=== PATIENT | male | born 1995 | race Caucasian/White ===

== ENCOUNTER 2018-03-08 14:57 | Emergency (ER) | payer BC ==
[2018-03-08] MEDS ORDERED: KETOROLAC 60 MG/2 ML VIAL IM STA (15:46)
[2018-03-08] MEDS ORDERED: METHOCARBAMOL 750 MG TAB PO STA (15:46)
[2018-03-08] MEDS ORDERED: LIDOCAINE 5% PATCH TOPICAL STA (15:48)
[2018-03-08] MEDS ORDERED: HYDROcodone/APAP 7.5-325MG 1 EACH TAB PO ONE (15:49)
--- NOTE | 2018-03-08 15:52 | ED ---
Back Pain HPI - General Chief Complaint: Back Pain/Injury Stated Complaint: Back pain Time Seen by Provider: 03/08/18 15:32 Source: patient Limitations: no limitations - History of Present Illness Initial Comments: Patient is a 22-year-old male presenting for back pain. He states that 2 years ago, he fell onto a steel beam injuring his back but did not require any surgery for that. He states that he did been having lingering pain in the right leg which is pretty much resolved. However, he was horseplaying last night and the friend up when he started having exquisite low right back pain with some shooting pain down his right leg. He denies any saddle anesthesia, bowel incontinence, urinary retention and states that he tried Motrin and Tylenol which did not help. - Related Data Previous Rx's Medication Instructions Recorded Ibuprofen [Motrin] 600 mg PO Q6HR PRN #20 tab 03/08/18 Lidocaine 5% Patch [Lidoderm] 1 patch TOPICAL DAILY #5 patch 03/08/18 Methocarbamol [Robaxin] 500 mg PO TID #20 tab 03/08/18 predniSONE 50 mg PO DAILY #5 tablet 03/08/18 Allergies Allergy/AdvReac Type Severity Reaction Status Date / Time No Known Allergies Allergy Verified 03/08/18 15:02 Review of Systems ROS Statement: Those systems with pertinent positive or pertinent negative responses have been documented in the HPI. Constitutional: Negative for chills, fatigue and fever. HENT: Negative for congestion. Respiratory: Negative for chest tightness, shortness of breath and wheezing. Negative for cough Cardiovascular: Negative for chest pain and palpitations. Gastrointestinal: Negative for abdominal pain. Negative for abdominal distention , diarrhea, nausea and vomiting. Genitourinary: Negative for dysuria. Musculoskeletal: Positive for back pain, negative for neck pain and neck stiffness. Skin: Negative for color change. Neurological: Negative for dizziness, speech difficulty, weakness and light- headedness. Psychiatric/Behavioral: Negative for agitation and confusion. Negative for anxiety ROS Other: All systems not noted in ROS Statement are negative. Past Medical History Additional Past Medical History / Comment(s): chronic back pain History of Any Multi-Drug Resistant Organisms: None Reported Past Surgical History: Appendectomy, Orthopedic Surgery Past Psychological History: No Psychological Hx Reported Smoking Status: Never smoker Past Alcohol Use History: Occasional Past Drug Use History: None Reported General Exam - General Exam Comments Initial Comments: Constitutional: Pt is oriented to person, place, and time. Pt appears well- developed and well-nourished. No distress. HENT: Head: Normocephalic and atraumatic. Eyes: EOM are normal. Neck: Normal range of motion. Neck supple. Cardiovascular: Normal rate, regular rhythm, S1 normal, S2 normal and normal heart sounds. Exam reveals no gallop and no friction rub. No murmur heard. Pulmonary/Chest: Effort normal and breath sounds normal. No tachypnea and no bradypnea. No respiratory distress. No wheezes or rales noted. Abdominal: Soft. Bowel sounds are normal. Pt exhibits no shifting dullness, no distension, no pulsatile liver, no fluid wave, no abdominal bruit and no ascites. There is no tenderness. There is no rigidity, no rebound, no guarding, no tenderness at McBurney's point and negative Mane's sign. Musculoskeletal: Positive right leg lift test, negative left leg raise test. 2 + patellar tendon reflexes bilaterally. Muscle strength 5 over 5 of the lower extremities. Neurological: Pt is alert and oriented to person, place, and time. No cranial nerve deficit. Skin: Skin is warm and dry. No rash noted. Pt is not diaphoretic. No erythema. No pallor. Psychiatric: Pt has a normal mood and affect. Pt behavior is normal. Thought content normal. Limitations: no limitations Course Vital Signs 03/08/18 03/08/18 15:00 17:07 Temperature 97.8 F 98 F Pulse Rate 84 70 Respiratory 20 18 Rate Blood Pressure 136/91 140/92 O2 Sat by Pulse 99 98 Oximetry Medical Decision Making - Medical Decision Making Because of the patient's past medical history of back injury, there is no evidence of acute fracture or malalignment. Patient was given multiple analgesics and stated that pain was manageable. Because of no red flag symptoms consistent with cauda equina, it was felt the patient could be safely discharged home. He is also given multiple prescriptions for analgesics and advised to follow-up with the PCP. Patient was agreeable plan. Disposition Clinical Impression: Back pain Disposition: HOME SELF-CARE Condition: Good Instructions: Acute Low Back Pain (ED) Prescriptions: Ibuprofen [Motrin] 600 mg PO Q6HR PRN #20 tab PRN Reason: Pain Lidocaine 5% Patch [Lidoderm] 1 patch TOPICAL DAILY #5 patch Methocarbamol [Robaxin] 500 mg PO TID #20 tab predniSONE 50 mg PO DAILY #5 tablet Is patient prescribed a controlled substance at d/c from ED?: No Referrals: None,Stated [Primary Care Provider] - 1-2 days Time of Disposition: 16:49
--- NOTE | 2018-03-08 16:10 | XR ---
EXAMINATION TYPE: XR lumbar spine 2 or 3V DATE OF EXAM: 03/08/2018 CLINICAL HISTORY: Back pain TECHNIQUE: Frontal and lateral images of the lumbar spine are obtained. COMPARISON: None FINDINGS: There is a very mild levoscoliosis of the lumbar spine may could be positional in nature. Bowel gas overlies the lower transverse processes. Otherwise the transverse processes are intact. Cassandra gical clips are seen over the right iliac bone there is minimal facet arthropathy at and L5-S1. There are 5 lumbar type vertebral bodies identified. The lumbar spine shows satisfactory alignment withou t evidence of acute fracture or dislocation. Vertebral body heights and disk space heights are within normal limits. The overlying soft tissue appears unremarkable. IMPRESSION: No acute fracture or malalignment is seen in the lumbar spine.
[2018-03-08 17:07] VITALS: BP 140/92; PULSE 70; RESP 18; TEMP 98
== END 2018-03-08 17:07 | disposition home or self-care (01) ==
LOC: EC 14:57
DX: M54.5 Low back pain (principal); M79.604 Pain in right leg; Y93.83 Activity, rough housing and horseplay
CPT/HCPCS: 72100; 99283; 96372; J1885

== ENCOUNTER 2023-08-31 08:24 | Emergency (ER) | payer BC, OTHER ==
--- NOTE | 2023-08-31 08:39 | ED ---
General Adult HPI - General Stated complaint: Syncope Time Seen by Provider: 08/31/23 08:25 Source: patient, RN notes reviewed, old records reviewed - History of Present Illness Initial comments: This is a 28-year-old male who presents emergency Department if he woke up this morning was having some carpal tunnel pain that he always has. Patient states it was a little worse than normal he went into [employer] and states became little nauseous and then felt lightheaded and sat down on the couch and passed out his girlfriend's that he was out for couple minutes. Patient denies any chest pain difficulty breathing or shortness of breath per patient denies any headache patient denies numbness weakness per patient, pain patient denies any nausea currently. Patient denies vomiting or diarrhea. Patient states once he woke up he felt completely normal and had no complaints - Related Data Previous Rx's Medication Instructions Recorded Ibuprofen [Motrin] 600 mg PO Q6HR PRN #20 tab 03/08/18 Lidocaine 5% Patch [Lidoderm] 1 patch TOPICAL DAILY #5 patch 03/08/18 methocarbamoL [Robaxin] 500 mg PO TID #20 tab 03/08/18 predniSONE 50 mg PO DAILY #5 tablet 03/08/18 Allergies Allergy/AdvReac Type Severity Reaction Status Date / Time No Known Allergies Allergy Verified 08/31/23 08:34 Review of Systems ROS Statement: Those systems with pertinent positive or pertinent negative responses have been documented in the HPI. ROS Other: All systems not noted in ROS Statement are negative. Past Medical History Additional Past Medical History / Comment(s): chronic back pain History of Any Multi-Drug Resistant Organisms: None Reported Past Surgical History: Appendectomy, Orthopedic Surgery Past Psychological History: No Psychological Hx Reported Past Alcohol Use History: Occasional Past Drug Use History: None Reported General Exam - General Exam Comments Initial Comments: GENERAL: Patient is well-developed and well-nourished. Patient is nontoxic and well- hydrated and is in no acute distress. ENT: Neck is soft and supple. No significant lymphadenopathy is noted. Oropharynx is clear. Moist mucous membranes. Neck has full range of motion without eliciting any pain. EYES: The sclera were anicteric and conjunctiva were pink and moist. Extraocular movements were intact and pupils were equal round and reactive to light. Eyelids were unremarkable. PULMONARY: Unlabored respirations. Good breath sounds bilaterally. No audible rales rhonchi or wheezing was noted. CARDIOVASCULAR: There is a regular rate and rhythm without any murmurs gallops or rubs. ABDOMEN: Soft and nontender with normal bowel sounds. No palpable organomegaly was noted. There is no palpable pulsatile mass. SKIN: Skin is clear with no lesions or rashes and otherwise unremarkable. NEUROLOGIC: Patient is alert and oriented x3. Cranial nerves II through XII are grossly intact. Motor and sensory are also intact. Normal speech, volume and content. Symmetrical smile. MUSCULOSKELETAL: Normal extremities with adequate strength and full range of motion. No lower extremity swelling or edema. No calf tenderness. LYMPHATICS: No significant lymphadenopathy is noted PSYCHIATRIC: Normal psychiatric evaluation. Course Vital Signs 08/31/23 08:26 Temperature 97.1 F L Pulse Rate 90 Respiratory 18 Rate Blood Pressure 153/92 O2 Sat by Pulse 98 Oximetry Medical Decision Making - Medical Decision Making EKG is interpreted by myself. EKG shows a sinus rhythm at 70 bpm WA interval 131 QRS 102 QT interval 43 QTC is 423. Patient's EKG shows no ST segment elevation. Was pt. sent in by a medical professional or institution (, PA, [employer], urgent care, hospital, or intermediate...) When possible be specific @ -No Did you speak to anyone other than the patient for history (EMS, parent, family, police, friend...)? What history was obtained from this source @ -No Did you review nursing and triage notes (agree or disagree)? Why? @ -I reviewed and agree with nursing and triage notes Were old charts reviewed (outside hosp., previous admission, EMS record, old EKG, old radiological studies, urgent care reports/EKG's, intermediate records)? Report findings @ -No old charts were reviewed Differential Diagnosis (chest pain, altered mental status, abdominal pain women, abdominal pain men, vaginal bleeding, weakness, fever, dyspnea, syncope, headache, dizziness, GI bleed, back pain, seizure, CVA, palpatations, mental health, musculoskeletal)? @ -Differential Syncope: Valvular disease, hypertrophic cardiomyopathy, pulmonary embolism, tamponade, tachycardia, bradycardia, GA, hypovolemia, hemorrhage, dissection, anemia, intracranial hemorrhage, seizure, hypoglycemia, carbon monoxide poisoning, this is not meant to be an all-inclusive list. EKG interpreted by me (3pts min.). @ -As above X-rays interpreted by me (1pt min.). @ -Chest x-ray showed no acute abnormality CT interpreted by me (1pt min.). @ -None done U/S interpreted by me (1pt. min.). @ -None done What testing was considered but not performed or refused? (CT, X-rays, U/S, labs)? Why? @ -None What meds were considered but not given or refused? Why? @ -None Did you discuss the management of the patient with other professionals (professionals i.e. DrJenifer, PA, [employer], lab, RT, psych nurse, social work supervisor, floor coverings installer, teacher, customer service security officer, correctional case records supervisor)? Give summary @ -No Was smoking cessation discussed for >3mins.? @ -No Was critical care preformed (if so, how long)? @ -No Were there social determinants of health that impacted care today? How? (Homelessness, low income, unemployed, alcoholism, drug addiction, transportation, low edu. Level, literacy, decrease access to med. care, senior care, rehab)? @ -No Was there de-escalation of care discussed even if they declined (Discuss DNR or withdrawal of care, Hospice)? DNR status @ -No What co-morbidities impacted this encounter? (DM, HTN, Smoking, COPD, CAD, Cancer, CVA, ARF, Chemo, Hep., AIDS, mental health diagnosis, sleep apnea, morbid obesity)? @ -None Was patient admitted / discharged? Hospital course, mention meds given and route, prescriptions, significant lab abnormalities, going to OR and other pertinent info. @ -Patient was asymptomatic throughout his ED stay. Patient was given a liter of fluid. Patient was reevaluated multiple times and had no complaints. Undiagnosed new problem with uncertain prognosis? @ -No Drug Therapy requiring intensive monitoring for toxicity (Heparin, Nitro, Insulin, Cardizem)? @ -No Were any procedures done? @ -No Diagnosis/symptom? @ -Vasovagal syncope Acute, or Chronic, or Acute on Chronic? @ -Acute Uncomplicated (without systemic symptoms) or Complicated (systemic symptoms)? @ -Complicated Side effects of treatment? @ -No Exacerbation, Progression, or Severe Exacerbation? @ -No Poses a threat to life or bodily function? How? (Chest pain, USA, GA, pneumonia, PE, COPD, DKA, ARF, appy, cholecystitis, CVA, Diverticulitis, Homicidal, S uicidal, threat to staff... and all critical care pts) @ -No - Lab Data Result diagrams: 08/31/23 08:40 08/31/23 08:40 Lab Results 08/31/23 08/31/23 Range/Units 08:40 08:40 WBC 5.4 (3.8-10.6) k/uL RBC 5.05 (4.30-5.90) m/uL Hgb 15.4 (13.0-17.5) gm/dL Hct 45.0 (39.0-53.0) % MCV 89.1 (80.0-100.0) fL MCH 30.5 (25.0-35.0) pg MCHC 34.3 (31.0-37.0) g/dL RDW 12.3 (11.5-15.5) % Plt Count 237 (150-450) k/uL MPV 7.2 Neutrophils % 51 % Lymphocytes % 37 % Monocytes % 8 % Eosinophils % 1 % Basophils % 1 % Neutrophils # 2.8 (1.3-7.7) k/uL Lymphocytes # 2.0 (1.0-4.8) k/uL Monocytes # 0.4 (0-1.0) k/uL Eosinophils # 0.1 (0-0.7) k/uL Basophils # 0.0 (0-0.2) k/uL Sodium 139 (137-145) mmol/L Potassium 4.2 (3.5-5.1) mmol/L Chloride 104 (98-107) mmol/L Carbon Dioxide 26 (22-30) mmol/L Anion Gap 9 mmol/L BUN 21 H (9-20) mg/dL Creatinine 0.80 (0.66-1.25) mg/dL Est GFR (CKD-EPI)AfAm >90 (>60 ml/min/1.73 sqM) Est GFR (CKD-EPI)NonAf >90 (>60 ml/min/1.73 sqM) Glucose 126 H (74-99) mg/dL Calcium 10.2 (8.4-10.2) mg/dL Magnesium 2.2 (1.6-2.3) mg/dL Total Bilirubin 0.9 (0.2-1.3) mg/dL AST 28 (17-59) U/L ALT 27 (4-49) U/L Alkaline Phosphatase 54 (38-126) U/L Total Protein 7.9 (6.3-8.2) g/dL Albumin 4.9 (3.5-5.0) g/dL Disposition Clinical Impression: Vasovagal syncope Disposition: HOME SELF-CARE Condition: Good Instructions (If sedation given, give patient instructions): Hypotension (ED), Syncope (ED) Is patient prescribed a controlled substance at d/c from ED?: No Referrals: Dillon Kelley MD [Primary Care Provider] - 1-2 days Time of Disposition: 09:59
[2023-08-31 08:51] VITALS: TEMP 97.1
[2023-08-31 08:59] LABS: Basophils % (A) 1 %; Eosinophils # (A) 0.1 k/uL (0-0.7); Eosinophils % (A) 1 %; HGB 15.4 gm/dL (13.0-17.5); Lymphocytes % (A) 37 %; MCH 30.5 pg (25.0-35.0); MCHC 34.3 g/dL (31.0-37.0); MCV 89.1 fL (80.0-100.0); Mean Platelet Volume 7.2; Monocytes # (A) 0.4 k/uL (0-1.0); Monocytes % (A) 8 %; Neutrophils # (A) 2.8 k/uL (1.3-7.7); Neutrophils % (A) 51 %; Platelet Count 237 k/uL (150-450); RBC 5.05 m/uL (4.30-5.90); RDW 12.3 % (11.5-15.5); WBC 5.4 k/uL (3.8-10.6)
[2023-08-31] MEDS ORDERED: SODIUM CHLORIDE 0.9% 1,000 ML IV ONE (09:00)
[2023-08-31 09:13] LABS: ALT 27 U/L (4-49); AST 28 U/L (17-59); African American GFR (CKD) >90 (>60 ml/min/1.73 sqM); Albumin 4.9 g/dL (3.5-5.0); Alkaline Phosphatase 54 U/L (38-126); Anion Gap 9 mmol/L; Blood Urea Nitrogen 21 mg/dL (9-20); Calcium 10.2 mg/dL (8.4-10.2); Carbon Dioxide 26 mmol/L (22-30); Chloride 104 mmol/L (98-107); Glucose 126 mg/dL (74-99); Magnesium 2.2 mg/dL (1.6-2.3); Non-African American GFR(CKD) >90 (>60 ml/min/1.73 sqM); Potassium 4.2 mmol/L (3.5-5.1); Sodium 139 mmol/L (137-145); Total Bilirubin 0.9 mg/dL (0.2-1.3); Total Protein 7.9 g/dL (6.3-8.2)
--- NOTE | 2023-08-31 09:27 | XR ---
EXAMINATION TYPE: XR chest 2V DATE OF EXAM: 08/31/2023 COMPARISON: NONE HISTORY: Chest pain and diaphoresis and nausea TECHNIQUE: Frontal and lateral views of the chest are obtained. FINDINGS: There is no focal air space opacity, pleural effusion, or pneumothorax seen. The cardiac silhouette size is within normal limits. The osseous structures are intact. IMPRESSION: No acute cardiopulmonary process.
[2023-08-31 10:59] VITALS: BP 121/84; PULSE 70; RESP 18
== END 2023-08-31 10:52 | disposition home or self-care (01) ==
LOC: EC 08:24 → SUPCPDRO 08:24 → EC 10:52
DX: R55 Syncope and collapse (principal)
CPT/HCPCS: 36415; 71046; 80053; 83735; 85025; 93005; 96360; 99285

== ENCOUNTER 2025-03-01 07:45 | Emergency (ER) | payer OTHER ==
[2025-03-01 07:50] VITALS: RESP 18
[2025-03-01 08:15] LABS: Glucose,Whole Blood 98 mg/dL (70-110)
[2025-03-01] MEDS: SODIUM CHLORIDE 0.9% 1,000 ML IV STA (08:25)
[2025-03-01 08:42] LABS: Basophils # (A) 0.06 10*3/uL (0.00-0.10); Basophils % (A) 0.9 %; Eosinophils # (A) 0.19 10*3/uL (0.04-0.35); Eosinophils % (A) 2.7 %; HCT 45.8 % (39.6-50.0); HGB 16.0 g/dL (13.0-17.0); Lymphocytes # (A) 1.86 10*3/uL (0.90-5.00); Lymphocytes % (A) 26.5 %; MCH 30.5 pg (27.0-32.0); MCHC 34.9 g/dL (32.0-37.0); MCV 87.4 fL (80.0-97.0); Monocytes # (A) 0.79 10*3/uL (0.20-1.00); Monocytes % (A) 11.3 %; Neutrophils # (A) 4.11 10*3/uL (1.80-7.70); Neutrophils % (A) 58.5 %; Platelet Count 236 10*3/uL (140-440); RBC 5.24 10*6/uL (4.40-5.60); RDW 13.1 % (11.5-14.5); WBC 7.02 10*3/uL (4.50-10.00)
[2025-03-01 09:00] LABS: ALT 32 U/L (4-49); AST 33 U/L (17-59); African American GFR (CKD) >90 (>60 ml/min/1.73 sqM); Albumin 5.1 g/dL (3.5-5.0); Alkaline Phosphatase 64 U/L (38-126); Anion Gap 13 mmol/L; Blood Urea Nitrogen 21 mg/dL (9-20); Calcium 10.5 mg/dL (8.4-10.2); Carbon Dioxide 28 mmol/L (22-30); Chloride 99 mmol/L (98-107); Glucose 98 mg/dL (74-99); Magnesium 2.1 mg/dL (1.6-2.3); Non-African American GFR(CKD) >90 (>60 ml/min/1.73 sqM); Potassium 4.3 mmol/L (3.5-5.1); Sodium 140 mmol/L (137-145); Total Protein 8.7 g/dL (6.3-8.2)
--- NOTE | 2025-03-01 09:18 | XR ---
EXAMINATION TYPE: XR chest 2V DATE OF EXAM: 03/01/2025 9:10 AM COMPARISON: 08/31/2023 CLINICAL INDICATION: Male, 29 years old with history of syncope, , TECHNIQUE: PA and lateral views FINDINGS: The cardiomediastinal silhouette, aorta, and pulmonary vasculature are within normal limits. Lungs an d pleural spaces are clear. IMPRESSION: No acute cardiopulmonary process. [facility], , 03/01/2025 9:15 AM
--- NOTE | 2025-03-01 09:26 | CT ---
EXAMINATION TYPE: CT brain cspine wo con, CT facial bones wo con DATE OF EXAM: 03/01/2025 9:13 AM COMPARISON: None. CLINICAL INDICATION: Male, 29 years old with history of syncope, pain Technique: CT of the head and cervical spine without IV contrast. Coronal and sagittal reconstruction s performed. CT of the facial bones without contrast. Coronal and sagittal reconstructions performed. CT DLP: 1434.8 mGycm, Automated exposure control for dose reduction was used. FINDINGS: Head: There is no evidence of acute intracranial hemorrhage, acute ischemic changes, mass, mass-effect, or extra-axial fluid collection. There is no effacement of cerebral sulci or basal subarachnoid cister ns. There is no hydrocephalus. There is no midline shift. Roche-white matter distinction is preserv ed. Mastoid air cells are pneumatized. No calvarial fracture. Facial bones: The mandible and TMJs are intact. Zygomatic arches and pterygoid plates are intact. No nasal bone fracture. Orbits and globes are intact. No facial bone fracture seen. Paranasal sinuses are well pneumatized. Cervical spine: The alignment of the cervical spine is normal on coronal and reformatted images. There is no cranial vertebral abnormality. Fracture of the cervical spine is not seen. There is no evidence of focal disk herniation. There is no central spinal canal stenosis. Sagittal and coronal reformatted images confirm above findings. COMBINED IMPRESSION: 1. Head: No acute intracranial abnormality seen. 2. Facial bones: No acute facial bone fracture seen. 3. Cervical spine: No acute fracture or malalignment of the cervical spine. [facility], , 03/01/2025 9:23 AM
--- NOTE | 2025-03-01 10:12 | ED ---
General Adult HPI - General Chief complaint: Syncope Stated complaint: Fall/Head injury- syncope episode Time Seen by Provider: 03/01/25 08:10 Source: patient, RN notes reviewed, old records reviewed Mode of arrival: ambulatory Limitations: no limitations - History of Present Illness Initial comments: 29-year-old male who presents emergency department for syncopal episode. States he awoke this morning stood up and walked over to his closet and he had a syncopal episode and ended up on the ground. States he was out for a couple of moments and stood back up and walked to the bathroom to sit down where he had another syncopal episode. Did strike the right side of his face at some point and suffered some abrasions. States this has happened previously with a similar onset, first thing in the morning when he stands up. Currently is asymptomatic and has no acute complaints. Has walked since. He is not on blood thinners. Has no significant cardiac history. He has no family cardiac history. Denies any injuries other than some abrasions. States this has happened previously in the last couple years and also wants as a child. Presents for further evaluation at this time. Denies any significant alcohol use or drug abuse.Ashutosh proctor takes no medications. He is not on blood thinners. - Related Data Previous Rx's Medication Instructions Recorded Ibuprofen [Motrin] 600 mg PO Q6HR PRN #20 tab 03/08/18 Lidocaine 5% Patch [Lidoderm] 1 patch TOPICAL DAILY #5 patch 03/08/18 methocarbamoL [Robaxin] 500 mg PO TID #20 tab 03/08/18 predniSONE 50 mg PO DAILY #5 tablet 03/08/18 Allergies Allergy/AdvReac Type Severity Reaction Status Date / Time No Known Allergies Allergy Verified 08/31/23 08:34 Review of Systems ROS Statement: Those systems with pertinent positive or pertinent negative responses have been documented in the HPI. Review of Systems: CONST: Denies fever EYES: Denies blurry vision ENT: Denies nasal congestion C/V: Denies Chest pain RESP: Denies shortness of breath GI: Denies abdominal pain : Denies dysuria SKIN: Endorses facial abrasions MSK: Denies joint pain. NEURO: Denies headache ROS Other: All systems not noted in ROS Statement are negative. Past Medical History Additional Past Medical History / Comment(s): chronic back pain History of Any Multi-Drug Resistant Organisms: None Reported Past Surgical History: Appendectomy, Orthopedic Surgery Additional Past Surgical History / Comment(s): 2 wrist surgeries Past Psychological History: No Psychological Hx Reported Smoking Status: Never smoker Past Alcohol Use History: Occasional Past Drug Use History: None Reported General Exam - General Exam Comments Initial Comments: General: Appears in no acute distress. HEAD: Negative Egan sign. Negative raccoon eyes. Patient does have some small superficial abrasion/scratches on the right side of his face that are not actively bleeding and do not require closure. EYES: PERRLA, EOMI, conjunctiva normal, no discharge. Pupils are 3 mm and equal bilaterally. ENT: Hearing grossly intact, normal oropharynx. RESPIRATORY: Clear breath sounds bilaterally. No wheezes, rales, or rhonchi. C/V: Regular rate and rhythm. S1 and S2 auscultated, no edema, peripheral pulses 2+ and intact throughout ABD: Abd is soft, nontender, nondistended EXT: Normal range of motion, no obvious deformity. No significant cervical, thoracic, lumbar spine tenderness to palpation. Pelvis is stable. Able to ambulate. SKIN: No rashes or lesions observed on exposed skin. NEURO: Alert and oriented x 4. Cranial nerves II-XII intact. No focal sensory or strength deficits. GCS of 15. NIH of 0. Limitations: no limitations Course Vital Signs 03/01/25 03/01/25 03/01/25 07:46 07:57 09:51 Temperature 97.8 F Pulse Rate 65 Pulse Rate [ 72 Sitting] Pulse Rate [ 82 Standing] Pulse Rate [ 64 Supine] Respiratory 18 Rate Blood Pressure 125/83 131/90 Blood Pressure 128/83 [Sitting] Blood Pressure 129/80 [Standing] Blood Pressure 127/90 [Supine] O2 Sat by Pulse 100 100 Oximetry 03/01/25 10:25 Temperature 97.6 F Pulse Rate 62 Pulse Rate [ Sitting] Pulse Rate [ Standing] Pulse Rate [ Supine] Respiratory 18 Rate Blood Pressure 125/84 Blood Pressure [Sitting] Blood Pressure [Standing] Blood Pressure [Supine] O2 Sat by Pulse 100 Oximetry Medical Decision Making - Medical Decision Making Was pt. sent in by a medical professional or institution (, PA, ORACLE SQL DEVELOPER, urgent care, hospital, or senior living...) When possible be specific @ -No Did you speak to anyone other than the patient for history (EMS, parent, family, police, friend...)? What history was obtained from this source @ -No Did you review nursing and triage notes (agree or disagree)? Why? @ -I reviewed and agree with nursing and triage notes Were old charts reviewed (outside hosp., previous admission, EMS record, old EKG, old radiological studies, urgent care reports/EKG's, senior living records)? Report findings @ -No old charts were reviewed Differential Diagnosis (chest pain, altered mental status, abdominal pain women, abdominal pain men, vaginal bleeding, weakness, fever, dyspnea, syncope, headache, dizziness, GI bleed, back pain, seizure, CVA, palpatations, mental health, musculoskeletal)? @ -Differential Syncope: Valvular disease, hypertrophic cardiomyopathy, pulmonary embolism, tamponade, tachycardia, bradycardia, PR, hypovolemia, hemorrhage, dissection, anemia, intracranial hemorrhage, seizure, hypoglycemia, carbon monoxide poisoning, this is not meant to be an all-inclusive list. EKG interpreted by me (3pts min.). @ -As above X-rays interpreted by me (1pt min.). @ -Chest x-ray shows no obvious acute cardiopulmonary process. CT interpreted by me (1pt min.). @ -CT brain, C-spine, facial bones negative for any obvious acute traumatic injury or acute process. U/S interpreted by me (1pt. min.). @ -None done What testing was considered but not performed or refused? (CT, X-rays, U/S, labs)? Why? @ -None What meds were considered but not given or refused? Why? @ -None Did you discuss the management of the patient with other professionals (professionals i.e. , PA, [employer]LE SQL DEVELOPER, lab, RT, psych nurse, geriatric social worker, stitcher set up operator automatic, teacher, assault amphibious vehicle officer, clinical case manager)? Give summary @ -No Was smoking cessation discussed for >3mins.? @ -No Was critical care preformed (if so, how long)? @ -No Were there social determinants of health that impacted care today? How? (Home lessness, low income, unemployed, alcoholism, drug addiction, transportation, low edu. Level, literacy, decrease access to med. care, skilled nursing, rehab)? @ -No Was there de-escalation of care discussed even if they declined (Discuss DNR or withdrawal of care, Hospice)? DNR status @ -No What co-morbidities impacted this encounter? (DM, HTN, Smoking, COPD, CAD, Cancer, CVA, ARF, Chemo, Hep., AIDS, mental health diagnosis, sleep apnea, morbid obesity)? @ -None Was patient admitted / discharged? Hospital course, mention meds given and route, prescriptions, significant lab abnormalities, going to OR and other pertinent info. @ -Patient presents with what sounds like an episode of orthostatic hypotension resulting in syncope. Patient is currently asymptomatic. This has happened previously. Takes no medications. Vitals are within acceptable limits. He has no complaints. We will obtain general workup. Because he did have 2 quick episodes of syncope [id number] we will obtain CT brain. He was in agreement this plan. Given 2 L fluid bolus. Tetanus is up-to-date. Does not meet criteria for code coag or trauma activation. EKG shows no signs of acute ischemia. Laboratory studies are all within acceptable limits. Imaging negative for any obvious acute injury. On reevaluation, orthostatic vital signs within acceptable limits. He is ambulatory and has no complaints. I believe is safe for him to be discharged home at this time. Patient was in agreement this plan. Strict return precautions discussed. Recommended rest, hydration. Patient was in agreement this plan. I instructed the patient to follow up with their PCP in the next 1-3 days. I explained that the patient should return to the emergency department if they experience any worsening symptoms. Strict return precautions were discussed with the patient. The patient expressed understanding of these instructions. I answered all questions that the patient had. The patient was discharged home in good condition with their prescriptions and follow up information. Undiagnosed new problem with uncertain prognosis? @ -No Drug Therapy requiring intensive monitoring for toxicity (Heparin, Nitro, Insulin, Cardizem)? @ -No Were any procedures done? @ -No Diagnosis/symptom? @ -Syncope, fall, abrasion Acute, or Chronic, or Acute on Chronic? @ -Acute Uncomplicated (without systemic symptoms) or Complicated (systemic symptoms)? @ -Uncomplicated Side effects of treatment? @ -No Exacerbation, Progression, or Severe Exacerbation? @ -No Poses a threat to life or bodily function? How? (Chest pain, USA, PR, pneumonia, PE, COPD, DKA, ARF, appy, cholecystitis, CVA, Diverticulitis, Homicidal, Suicidal, threat to staff... and all critical care pts) @ -Unlikely at this time - Lab Data Result diagrams: 03/01/25 08:28 03/01/25 08:28 Lab Results 03/01/25 03/01/25 03/01/25 Range/Units 08:13 08:28 08:28 WBC 7.02 (4.50-10.00) 10*3/uL RBC 5.24 (4.40-5.60) 10*6/uL Hgb 16.0 (13.0-17.0) g/dL Hct 45.8 (39.6-50.0) % MCV 87.4 (80.0-97.0) fL MCH 30.5 (27.0-32.0) pg MCHC 34.9 (32.0-37.0) g/dL Plt Count 236 (140-440) 10*3/uL MPV 10.1 (9.5-12.2) fL Immature Gran % (Auto) 0.1 % Neutrophils % 58.5 % Lymphocytes % 26.5 % Monocytes % 11.3 % Eosinophils % 2.7 % Basophils % 0.9 % Immature Gran # 0.01 (0.00-0.04) 10*3/uL Neutrophils # 4.11 (1.80-7.70) 10*3/uL Lymphocytes # 1.86 (0.90-5.00) 10*3/uL Monocytes # 0.79 (0.20-1.00) 10*3/uL Eosinophils # 0.19 (0.04-0.35) 10*3/uL Basophils # 0.06 (0.00-0.10) 10*3/uL Sodium 140 (137-145) mmol/L Potassium 4.3 (3.5-5.1) mmol/L Chloride 99 (98-107) mmol/L Carbon Dioxide 28 (22-30) mmol/L Anion Gap 13 mmol/L BUN 21 H (9-20) mg/dL Creatinine 0.83 (0.66-1.25) mg/dL Est GFR (CKD-EPI)AfAm >90 (>60 ml/min/1.73 sqM) Est GFR (CKD-EPI)NonAf >90 (>60 ml/min/1.73 sqM) Glucose 98 (74-99) mg/dL POC Glucose (mg/dL) 98 (70-110) mg/dL POC Glu Bridal Gown Fitter ID Hari Lai Calcium 10.5 H (8.4-10.2) mg/dL Magnesium 2.1 (1.6-2.3) mg/dL Total Bilirubin 0.7 (0.2-1.3) mg/dL AST 33 (17-59) U/L ALT 32 (4-49) U/L Alkaline Phosphatase 64 (38-126) U/L Troponin I (0.000-0.034) ng/mL Total Protein 8.7 H (6.3-8.2) g/dL Albumin 5.1 H (3.5-5.0) g/dL TSH 1.910 (0.465-4.680) mIU/L Serum Alcohol <10 mg/dL 03/01/25 Range/Units 08:28 WBC (4.50-10.00) 10*3/uL RBC (4.40-5.60) 10*6/uL Hgb (13.0-17.0) g/dL Hct (39.6-50.0) % MCV (80.0-97.0) fL MCH (27.0-32.0) pg MCHC (32.0-37.0) g/dL Plt Count (140-440) 10*3/uL MPV (9.5-12.2) fL Immature Gran % (Auto) % Neutrophils % % Lymphocytes % % Monocytes % % Eosinophils % % Basophils % % Immature Gran # (0.00-0.04) 10*3/uL Neutrophils # (1.80-7.70) 10*3/uL Lymphocytes # (0.90-5.00) 10*3/uL Monocytes # (0.20-1.00) 10*3/uL Eosinophils # (0.04-0.35) 10*3/uL Basophils # (0.00-0.10) 10*3/uL Sodium (137-145) mmol/L Potassium (3.5-5.1) mmol/L Chloride (98-107) mmol/L Carbon Dioxide (22-30) mmol/L Anion Gap mmol/L BUN (9-20) mg/dL Creatinine (0.66-1.25) mg/dL Est GFR (CKD-EPI)AfAm (>60 ml/min/1.73 sqM) Est GFR (CKD-EPI)NonAf (>60 ml/min/1.73 sqM) Glucose (74-99) mg/dL POC Glucose (mg/dL) (70-110) mg/dL POC Glu Bridal Gown Fitter ID Calcium (8.4-10.2) mg/dL Magnesium (1.6-2.3) mg/dL Total Bilirubin (0.2-1.3) mg/dL AST (17-59) U/L ALT (4-49) U/L Alkaline Phosphatase (38-126) U/L Troponin I <0.012 (0.000-0.034) ng/mL Total Protein (6.3-8.2) g/dL Albumin (3.5-5.0) g/dL TSH (0.465-4.680) mIU/L Serum Alcohol mg/dL - EKG Data -: EKG Interpreted by Me EKG Comments: 12-lead Electrocardiogram Interpretation Note EKG was reviewed and interpreted by myself. 12-lead ECG performed at 0810 is interpreted by me as revealing normal sinus rhythm at a rate of 62 beats per minute. [place] is normal. [place] interval is 147 ms, QRS durations 102 ms, QTc is 397 ms.. There were no ST or T wave abnormalities to suggest myocardial ischemia or injury. R wave progression across the precordium was satisfactory. By my interpretation this EKG is non-diagnostic for acute ischemia. Disposition Clinical Impression: Fall, Syncope, Abrasion Disposition: HOME SELF-CARE Condition: Good Instructions (If sedation given, give patient instructions): Syncope (ED) Is patient prescribed a controlled substance at d/c from ED?: No Referrals: Dillon Kelley MD [Primary Care Provider] - 1-2 days Time of Disposition: 10:12
[2025-03-01 10:49] VITALS: BP 125/84; PULSE 62; TEMP 97.6
== END 2025-03-01 10:25 | disposition home or self-care (01) ==
LOC: EC 07:45
DX: S00.81XA Abrasion of other part of head, initial encounter (principal); W01.0XXA Fall on same level from slipping, tripping and stumbling without subsequent striking against object, initial encounter; Y92.012 Bathroom of single-family (private) house as the place of occurrence of the external cause
CPT/HCPCS: 36415; 70450; 70486; 71046; 72125; 80053; 80320; 83735; 84443; 84484; 85025; 93005; 96360; 99284